=== PATIENT | female | born 1970 | race Caucasian/White ===

== ENCOUNTER 2022-07-19 20:22 | Observation (INO) | payer MEDICARE, OTHER ==
[2022-07-19] MEDS ORDERED: ONDANSETRON 4 MG/2 ML VIAL IVP STA (20:41)
[2022-07-19] MEDS ORDERED: SODIUM CHLORIDE 0.9% 500 ML 500 ML IV STA (20:41)
[2022-07-19] MEDS ORDERED: SODIUM CHLORIDE 0.9% 1,000 ML IV STA (20:41)
[2022-07-19] MEDS ORDERED: KETOROLAC 15 MG/ML 1 ML VIAL IVP STA (20:41)
[2022-07-19] MEDS ORDERED: HYDROmorphone 0.5 MG/0.5 ML SYRINGE IVP STA ×2 (20:42→22:06)
[2022-07-19 21:22] LABS: Basophils # (A) 0.1 k/uL (0-0.2); Basophils % (A) 0 %; Eosinophils # (A) 0.2 k/uL (0-0.7); Eosinophils % (A) 1 %; HCT 37.2 % (34.0-46.0); HGB 12.5 gm/dL (11.4-16.0); Lymphocytes # (A) 1.1 k/uL (1.0-4.8); Lymphocytes % (A) 6 %; MCH 29.8 pg (25.0-35.0); MCHC 33.7 g/dL (31.0-37.0); MCV 88.5 fL (80.0-100.0); Mean Platelet Volume 8.1; Monocytes # (A) 0.9 k/uL (0-1.0); Monocytes % (A) 5 %; Neutrophils # (A) 14.5 k/uL (1.3-7.7); Neutrophils % (A) 86 %; Platelet Count 323 k/uL (150-450); RBC 4.21 m/uL (3.80-5.40); RDW 12.4 % (11.5-15.5); WBC 16.8 k/uL (3.8-10.6)
[2022-07-19 21:29] LABS: Albumin 3.8 g/dL (3.5-5.0); Calcium 9.2 mg/dL (8.4-10.2); Potassium 4.7 mmol/L (3.5-5.1); Total Bilirubin 0.6 mg/dL (0.2-1.3); Total Protein 6.9 g/dL (6.3-8.2)
--- NOTE | 2022-07-19 21:40 | CT ---
EXAMINATION TYPE: CT abdomen pelvis wo con CT DLP: 272.4 mGycm, Automated exposure control for dose reduction was used. DATE OF EXAM: 07/19/2022 9:28 PM COMPARISON: None CLINICAL INDICATION:Female, 51 years old with history of abdominal pain; left sided flank pain TECHNIQUE: Axial CT of the abdomen and pelvis. Sagittal and coronal reformats were created on a [employer] workstation. Contrast used: None Oral contrast used: without Oral Contrast FINDINGS: LOWER CHEST: Left lower lobe calcified granuloma calcified granuloma The esophagus in the lower mediastinum. ABDOMEN LIVER: Unremarkable GALLBLADDER AND BILE DUCTS: The gallbladder surgically absent. PANCREAS: Unremarkable. SPLEEN: Unremarkable. ADRENAL GLANDS: Unremarkable. KIDNEYS AND URETERS: Staghorn calculus within the left renal pelvis extending into the lower calyces. There is associated mild to moderate dilation of the renal pelvis and calyces secondary to the large staghorn calculus in the renal pelvis. Right kidney demonstrates no evidence for calculus or hydronephrosis. PELVIS BLADDER: Unremarkable REPRODUCTIVE: Unremarkable. ABDOMEN & PELVIS STOMACH AND BOWEL: No evidence of bowel obstruction. PERITONEUM/RETROPERITONEUM: No evidence of pneumoperitoneum or free fluid. . VASCULATURE: No evidence of aortic aneurysm. MUSCULOSKELETAL: No acute osseous abnormalities, levoscoliosis apex L2. LYMPH NODES: No gross evidence for lymphadenopathy. SOFT TISSUE/ABDOMINAL WALL: Unremarkable IMPRESSION: Left staghorn calculus with mild to moderate left hydronephrosis predominately of the calyces. Urolog ic consultation recommended
--- NOTE | 2022-07-19 22:07 | ED ---
Abdominal Pain HPI - General Chief Complaint: Abdominal Pain Stated Complaint: Poss kidney stones Time Seen by Provider: 07/19/22 20:31 Source: patient, RN notes reviewed Mode of arrival: ambulatory Limitations: no limitations - History of Present Illness Initial Comments: 51-year-old female presents emergency department chief complaint left flank pain. Patient states started approximately 10 days ago has severely worsened states that she cannot keep anything down. Patient states symptoms are worsening daily and is are unremarkable this. Patient denies any change in bowel habits states that she's had some change in color or urine. Patient state s pain rates her back always down into her groin. No fevers or chills no chest pain. - Related Data Allergies Allergy/AdvReac Type Severity Reaction Status Date / Time Penicillins Allergy Vomiting Verified 07/19/22 20:26 Review of Systems ROS Statement: Those systems with pertinent positive or pertinent negative responses have been documented in the HPI. ROS Other: All systems not noted in ROS Statement are negative. Past Medical History Past Medical History: No Reported History Past Surgical History: No Surgical Hx Reported Past Psychological History: No Psychological Hx Reported Smoking Status: Current every day smoker Past Alcohol Use History: None Reported Past Drug Use History: None Reported General Exam Limitations: no limitations General appearance: alert, in no apparent distress Head exam: Present: atraumatic, normocephalic, normal inspection Eye exam: Present: normal appearance, PERRL, EOMI. Absent: scleral icterus, conjunctival injection, periorbital swelling ENT exam: Present: normal exam, normal oropharynx, mucous membranes moist Neck exam: Present: normal inspection, full ROM. Absent: tenderness, meningismus, lymphadenopathy Respiratory exam: Present: normal lung sounds bilaterally. Absent: respiratory distress, wheezes, rales, rhonchi, stridor Cardiovascular Exam: Present: regular rate, normal rhythm, normal heart sounds. Absent: systolic murmur, diastolic murmur, rubs, gallop, clicks GI/Abdominal exam: Present: soft, tenderness, normal bowel sounds. Absent: distended, guarding, rebound, rigid Back exam: Present: CVA tenderness (L) Neurological exam: Present: alert Skin exam: Present: warm, dry, intact, normal color. Absent: rash Course Vital Signs 07/19/22 20:23 Temperature 97.4 F L Pulse Rate 100 Respiratory 20 Rate Blood Pressure 129/84 O2 Sat by Pulse 98 Oximetry Medical Decision Making - Medical Decision Making Was pt. sent in by a medical professional or institution (, [employer], [employer]ATING [employer] SUPERVISOR, urgent care, hospital, or senior care...) When possible be specific @ -[No] Did you speak to anyone other than the patient for history (EMS, parent, family, police, friend...)? What history was obtained from this source @ -[No] Did you review nursing and triage notes (agree or disagree)? Why? @ -[I reviewed and agree with nursing and triage notes] Were old charts reviewed (outside hosp., previous admission, EMS record, old EKG, old radiological studies, urgent care reports/EKG's, senior care records)? Report findings @ -[No old charts were reviewed] Differential Diagnosis (chest pain, altered mental status, abdominal pain women, abdominal pain men, vaginal bleeding, weakness, fever, dyspnea, syncope, headache, dizziness, GI bleed, back pain, seizure, CVA, palpatations, mental health)? @ -[Pyelonephritis UTI, kidney stone, colitis, this list is not all inclusive.] EKG interpreted by me (3pts min.). @ -[None] X-rays interpreted by me (1pt min.). @ -[None done] CT interpreted by me (1pt min.). @ -[CT shows large staghorn telecast left kidney with hydronephrosis] U/S interpreted by me (1pt. min.). @ -[None done] What testing was considered but not performed or refused? (CT, X-rays, U/S, labs)? Why? @ -[None] What meds were considered but not given or refused? Why? @ -[None] Did you discuss the management of the patient with other professionals (professionals i.e. , NAYEL[employer], DECORATING AND ASSEMBLY SUPERVISOR, lab, RT, psych nurse, psychosocial rehabilitation counselor, reflexologist, teacher, residential care officer, renal case manager)? Give summary @ -[Neurology Dr. Harrison] Was smoking cessation discussed for >3mins.? @ -[No] Was critical care preformed (if so, how long)? @ -[No] Were there social determinants of health that impacted care today? How? (Homelessness, low income, unemployed, alcoholism, drug addiction, transportation, low edu. Level, literacy, decrease access to med. care, retirement, rehab)? @ -[No] Was there de-escalation of care discussed even if they declined (Discuss DNR or withdrawal of care, Hospice)? DNR status @ -[No] What co-morbidities impacted this encounter? (DM, HTN, Smoking, COPD, CAD, Cancer, CVA, ARF, Chemo, Hep., AIDS, mental health diagnosis, sleep apnea, morbid obesity)? @ -[None] Was patient admitted / discharged? Hospital course, mention meds given and route, prescriptions, significant lab abnormalities, going to OR and other pertinent info. @ -[Admitted patient has evidence of large staghorn calculus with hydronephrosis, UTI moderate leukocytosis and subjective fever concerns for possible septic stone, pyelonephritis.] Undiagnosed new problem with uncertain prognosis? @ -[No] Drug Therapy requiring intensive monitoring for toxicity (Heparin, Nitro, Insulin, Cardizem)? @ -[No] Were any procedures done? @ -[No] Diagnosis/symptom? @ -[Septic kidney stone] Acute, or Chronic, or Acute on Chronic? @ -[Acute] Uncomplicated (without systemic symptoms) or Complicated (systemic symptoms)? @ -[Complicated] Side effects of treatment? @ -[No] Exacerbation, Progression, or Severe Exacerbation? @ -[No] Poses a threat to life or bodily function? How? (Chest pain, [place], [place], pneumonia, PE, COPD, DKA, ARF, appy, cholecystitis, CVA, Diverticulitis, Homicidal, Suicidal, threat to staff... and all critical care pts) @ -[Yes patient has complicated kidney infection with kidney stone] - Lab Data Result diagrams: 07/19/22 21:06 07/19/22 21:06 Lab Results 07/19/22 07/19/22 07/19/22 Range/Units 21:06 21:06 21:06 WBC 16.8 H (3.8-10.6) k/uL RBC 4.21 (3.80-5.40) m/uL Hgb 12.5 (11.4-16.0) gm/dL Hct 37.2 (34.0-46.0) % MCV 88.5 (80.0-100.0) fL MCH 29.8 (25.0-35.0) pg MCHC 33.7 (31.0-37.0) g/dL RDW 12.4 (11.5-15.5) % Plt Count 323 (150-450) k/uL MPV 8.1 Neutrophils % 86 % Lymphocytes % 6 % Monocytes % 5 % Eosinophils % 1 % Basophils % 0 % Neutrophils # 14.5 H (1.3-7.7) k/uL Lymphocytes # 1.1 (1.0-4.8) k/uL Monocytes # 0.9 (0-1.0) k/uL Eosinophils # 0.2 (0-0.7) k/uL Basophils # 0.1 (0-0.2) k/uL Sodium 137 (137-145) mmol/L Potassium 4.7 (3.5-5.1) mmol/L Chloride 102 (98-107) mmol/L Carbon Dioxide 24 (22-30) mmol/L Anion Gap 11 mmol/L BUN 27 H (7-17) mg/dL Creatinine 0.98 (0.52-1.04) mg/dL Est GFR (CKD-EPI)AfAm 77 (>60 ml/min/1.73 sqM) Est GFR (CKD-EPI)NonAf 67 (>60 ml/min/1.73 sqM) Glucose 109 H (74-99) mg/dL Plasma Lactic Acid Chava 0.9 (0.7-2.0) mmol/L Calcium 9.2 (8.4-10.2) mg/dL Total Bilirubin 0.6 (0.2-1.3) mg/dL AST 17 (14-36) U/L ALT 17 (4-34) U/L Alkaline Phosphatase 134 H (38-126) U/L Total Protein 6.9 (6.3-8.2) g/dL Albumin 3.8 (3.5-5.0) g/dL Lipase 84 (23-300) U/L Urine Color Urine Appearance (Clear) Urine pH (5.0-8.0) Ur Specific Alva (1.001-1.035) Urine Protein (Negative) Urine Glucose (UA) (Negative) Urine Ketones (Negative) Urine Blood (Negative) Urine Nitrite (Negative) Urine Bilirubin (Negative) Urine Urobilinogen (<2.0) mg/dL Ur Leukocyte Esterase (Negative) Urine RBC (0-5) /hpf Urine WBC (0-5) /hpf Urine WBC Clumps (None) /hpf Ur Squamous Epith Cells (0-4) /hpf Urine Bacteria (None) /hpf Urine Mucus (None) /hpf 07/19/22 Range/Units 22:13 WBC (3.8-10.6) k/uL RBC (3.80-5.40) m/uL Hgb (11.4-16.0) gm/dL Hct (34.0-46.0) % MCV (80.0-100.0) fL MCH (25.0-35.0) pg MCHC (31.0-37.0) g/dL RDW (11.5-15.5) % Plt Count (150-450) k/uL MPV Neutrophils % % Lymphocytes % % Monocytes % % Eosinophils % % Basophils % % Neutrophils # (1.3-7.7) k/uL Lymphocytes # (1.0-4.8) k/uL Monocytes # (0-1.0) k/uL Eosinophils # (0-0.7) k/uL Basophils # (0-0.2) k/uL Sodium (137-145) mmol/L Potassium (3.5-5.1) mmol/L Chloride (98-107) mmol/L Carbon Dioxide (22-30) mmol/L Anion Gap mmol/L BUN (7-17) mg/dL Creatinine (0.52-1.04) mg/dL Est GFR (CKD-EPI)AfAm (>60 ml/min/1.73 sqM) Est GFR (CKD-EPI)NonAf (>60 ml/min/1.73 sqM) Glucose (74-99) mg/dL Plasma Lactic Acid Chava (0.7-2.0) mmol/L Calcium (8.4-10.2) mg/dL Total Bilirubin (0.2-1.3) mg/dL AST (14-36) U/L ALT (4-34) U/L Alkaline Phosphatase (38-126) U/L Total Protein (6.3-8.2) g/dL Albumin (3.5-5.0) g/dL Lipase (23-300) U/L Urine Color Yellow Urine Appearance Turbid H (Clear) Urine pH 7.5 (5.0-8.0) Ur Specific Alva 1.022 (1.001-1.035) Urine Protein 3+ H (Negative) Urine Glucose (UA) Negative (Negative) Urine Ketones 2+ H (Negative) Urine Blood Large H (Negative) Urine Nitrite Positive H (Negative) Urine Bilirubin Negative (Negative) Urine Urobilinogen <2.0 (<2.0) mg/dL Ur Leukocyte Esterase Large H (Negative) Urine RBC >182 H (0-5) /hpf Urine WBC >182 H (0-5) /hpf Urine WBC Clumps Many H (None) /hpf Ur Squamous Epith Cells 17 H (0-4) /hpf Urine Bacteria Many H (None) /hpf Urine Mucus Few H (None) /hpf Disposition Clinical Impression: UTI (urinary tract infection), Staghorn renal calculus, Leukocytosis Disposition: ADMITTED IP TO THIS HOSP Condition: Fair Referrals: None,Stated [Primary Care Provider] - 1-2 days Time of Disposition: 23:08
[2022-07-19 22:45] LABS: Appearance,Urine Turbid (Clear); Bacteria,Urine Many /hpf; Bilirubin,Urine Negative (Negative); Blood,Urine Large (Negative); Color,Urine Yellow; Glucose,Urine (UA) Negative (Negative); Ketones,Urine 2+ (Negative); Leukocyte Esterase,Urine Large (Negative); Mucus,Urine Few /hpf; Nitrite,Urine Positive (Negative); PH, Urine 7.5 (5.0-8.0); Protein,Urine 3+ (Negative); RBC,Urine >182 /hpf (0-5); Specific Gravity,Urine 1.022 (1.001-1.035); Squamous Epithelial Cell,Urine 17 /hpf (0-4); Urobilinogen,Urine <2.0 mg/dL (<2.0); WBC,Urine >182 /hpf (0-5)
[2022-07-19 23:26] VITALS: RESP 16
[2022-07-19] MEDS ORDERED: HYDROmorphone 0.5 MG/0.5 ML SYRINGE IVP PRN (23:28)
[2022-07-19] MEDS ORDERED: NALOXONE 0.4 MG/ML 1 ML VIAL IV PRN (23:28)
[2022-07-19] MEDS ORDERED: ONDANSETRON 4 MG/2 ML VIAL IVP PRN (23:28)
[2022-07-19] MEDS: KETOROLAC 15 MG/ML 1 ML VIAL IVP PRN (23:36)
[2022-07-19] MEDS: SODIUM CHLORIDE 0.9% 1,000 ML IV SCH (23:36)
[2022-07-20 10:23] VITALS: BP 135/74; PULSE 111; TEMP 98
--- NOTE | 2022-07-20 11:05 | P.DS ---
Providers Date of admission: 07/19/22 23:08 Expected date of discharge: 07/20/22 Attending physician: Ignacio Harrison MD Primary care physician: Stated None - Discharge Diagnosis(es) (1) Staghorn renal calculus Status: Acute (2) UTI (urinary tract infection) Status: Acute Hospital Course: The patient is a 51-year-old female with no reported past medical history. She is a current smoker. She presented to the emergency department on 07/19/22 with complaints of left flank pain that radiates to her left groin. Her pain started approximately 10 days ago and progressively got worse with associated nausea and vomiting. She denies any fever but has had some chills. Her urinalysis is consistent with a UTI. WBC 16.8. Urine culture and blood cultures are pending. Abdomen/pelvis CT shows left staghorn calculus with mild to moderate left hydronephrosis predominantly of the calyces. The patient is afebrile, creatinine is 0.98. She reports her pain is being well controlled. No previous history of kidney stones. She denies any dysuria or hematuria. She does report a history of recurrent UTIs. The patient is discharged home on Keflex 500 mg 3 times a day for 2 weeks to clear her current UTI. She will be scheduled by our office for an outpatient percutaneous nephrolithotomy. The patient is in agreement with this plan. Prescriptions were sent to her pharmacy for Keflex, Zofran, and Toradol. Impression and plan of care have been directed as dictated by the signing physician. Chelsea Huerta nurse practitioner acting as scribe for signing physician. Chelsea Huerta [facility] Palliative Care/Urology Spectralink [id number] Email: [email or web address] I personally performed and participated in the history, physical, the decision making, I agree with the assessment and plan of GALLEY WORKER Patient Condition at Discharge: Good Plan - Discharge Summary New Discharge Prescriptions: New Ondansetron [Zofran] 4 mg PO Q8HR PRN #10 tab PRN Reason: Nausea Ketorolac [Toradol] 10 mg PO Q6HR PRN #15 tab PRN Reason: Pain Cephalexin [Keflex] 500 mg PO Q8HR 14 Days #42 cap Discontinued Ondansetron [Zofran] 4 mg PO Q8H PRN PRN Reason: Nausea And Vomiting Naproxen [Naprosyn] 500 mg PO Q12H PRN PRN Reason: Pain Discharge Medication List Cephalexin [Keflex] 500 mg PO Q8HR 14 Days #42 cap 07/20/22 [Rx] Ketorolac [Toradol] 10 mg PO Q6HR PRN #15 tab 07/20/22 [Rx] Ondansetron [Zofran] 4 mg PO Q8HR PRN #10 tab 07/20/22 [Rx] Follow up Appointment(s)/Referral(s): None,Stated [Primary Care Provider] - 1-2 days Patient Instructions/Handouts: Kidney Stones (DC), Urinary Tract Infection in Women (DC) Activity/Diet/Wound Care/Special Instructions: - Dr. Harrison's office will contact you to schedule your surgery - Take medication prescribed for pain as needed - Do not take Toradol and Naprosyn at the same time - Take antibiotic, Keflex, 3 times a day for 2 weeks - Activity as tolerated Discharge Disposition: HOME SELF-CARE
[2022-07-20] MEDS: SODIUM CHLORIDE 0.9% 1,000 ML IV SCH (12:08)
[2022-07-20] MEDS: KETOROLAC 15 MG/ML 1 ML VIAL IVP PRN (12:09)
[2022-07-20 12:13] VITALS: BMI 18.3
--- NOTE | 2022-07-20 18:05 | P.GSHP ---
History of Present Illness H&P Date: 07/20/22 Chief Complaint: Left renal stone The patient is a 51-year-old female with no reported past medical history. She is a current smoker. She presented to the emergency department on 07/19/22 with complaints of left flank pain that radiates to her left groin. Her pain started approximately 10 days ago and progressively got worse with associated nausea and vomiting. She denies any fever but has had some chills. Her urinalysis is consistent with a UTI. WBC 16.8. Urine culture and blood cultures are pending. Abdomen/pelvis CT shows left staghorn calculus with mild to moderate left hydronephrosis predominantly of the calyces. The patient is afebrile, creatinine is 0.98. She reports her pain is being well controlled this am. No previous history of kidney stones. She denies any dysuria or hematuria. She does report a history of recurrent UTIs. Past Medical History Past Medical History: No Reported History Past Surgical History: No Surgical Hx Reported Past Psychological History: No Psychological Hx Reported Smoking Status: Current every day smoker Past Alcohol Use History: None Reported Past Drug Use History: None Reported Medications and Allergies Home Medications Medication Instructions Recorded Confirmed Type Cephalexin [Keflex] 500 mg PO Q8HR 14 Days #42 cap 07/20/22 Rx Ketorolac [Toradol] 10 mg PO Q6HR PRN #15 tab 07/20/22 Rx Ondansetron [Zofran] 4 mg PO Q8HR PRN #10 tab 07/20/22 Rx Allergies Allergy/AdvReac Type Severity Reaction Status Date / Time Penicillins AdvReac Vomiting Verified 07/20/22 07:30 Surgical - Exam Vital Signs Temp Pulse Resp BP Pulse Ox 97.4 F L 100 20 129/84 98 07/19/22 20:23 07/19/22 20:23 07/19/22 20:23 07/19/22 20:23 07/19/22 20:23 - General no distress, no pain - Eyes normal ocular movement, no pale - ENT normal nares, normal mucosa - Respiratory normal expansion, normal respiratory effort - Abdomen Abdomen: soft, tender (Left CVA tenderness), no distended - Psychiatric oriented to time, oriented to person, oriented to place Results - Labs 07/19/22 21:06 07/19/22 21:06 Abnormal Lab Results - Last 24 Hours (Table) 07/19/22 07/19/22 07/19/22 Range/Units 21:06 21:06 22:13 WBC 16.8 H (3.8-10.6) k/uL Neutrophils # 14.5 H (1.3-7.7) k/uL BUN 27 H (7-17) mg/dL Glucose 109 H (74-99) mg/dL Alkaline Phosphatase 134 H (38-126) U/L Urine Appearance Turbid H (Clear) Urine Protein 3+ H (Negative) Urine Ketones 2+ H (Negative) Urine Blood Large H (Negative) Urine Nitrite Positive H (Negative) Ur Leukocyte Esterase Large H (Negative) Urine RBC >182 H (0-5) /hpf Urine WBC >182 H (0-5) /hpf Urine WBC Clumps Many H (None) /hpf Ur Squamous Epith Cells 17 H (0-4) /hpf Urine Bacteria Many H (None) /hpf Urine Mucus Few H (None) /hpf Microbiology - Last 24 Hours (Table) 07/19/22 23:45 Blood Culture - Final Blood 07/19/22 22:13 Urine Culture - Preliminary Urine,Voided Diabetes panel 07/19/22 Range/Units 21:06 Sodium 137 (137-145) mmol/L Potassium 4.7 (3.5-5.1) mmol/L Chloride 102 (98-107) mmol/L Carbon Dioxide 24 (22-30) mmol/L BUN 27 H (7-17) mg/dL Creatinine 0.98 (0.52-1.04) mg/dL Glucose 109 H (74-99) mg/dL Calcium 9.2 (8.4-10.2) mg/dL AST 17 (14-36) U/L ALT 17 (4-34) U/L Alkaline Phosphatase 134 H (38-126) U/L Total Protein 6.9 (6.3-8.2) g/dL Albumin 3.8 (3.5-5.0) g/dL Calcium panel 07/19/22 Range/Units 21:06 Calcium 9.2 (8.4-10.2) mg/dL Albumin 3.8 (3.5-5.0) g/dL Pituitary panel 07/19/22 Range/Units 21:06 Sodium 137 (137-145) mmol/L Potassium 4.7 (3.5-5.1) mmol/L Chloride 102 (98-107) mmol/L Carbon Dioxide 24 (22-30) mmol/L BUN 27 H (7-17) mg/dL Creatinine 0.98 (0.52-1.04) mg/dL Glucose 109 H (74-99) mg/dL Calcium 9.2 (8.4-10.2) mg/dL Adrenal panel 07/19/22 Range/Units 21:06 Sodium 137 (137-145) mmol/L Potassium 4.7 (3.5-5.1) mmol/L Chloride 102 (98-107) mmol/L Carbon Dioxide 24 (22-30) mmol/L BUN 27 H (7-17) mg/dL Creatinine 0.98 (0.52-1.04) mg/dL Glucose 109 H (74-99) mg/dL Calcium 9.2 (8.4-10.2) mg/dL Total Bilirubin 0.6 (0.2-1.3) mg/dL AST 17 (14-36) U/L ALT 17 (4-34) U/L Alkaline Phosphatase 134 H (38-126) U/L Total Protein 6.9 (6.3-8.2) g/dL Albumin 3.8 (3.5-5.0) g/dL - Imaging CT scan - abdomen: image reviewed (Large left-sided staghorn) Assessment and Plan Assessment: This 51-year-old female with a large left-sided staghorn calculi, causing recurrent UTIs, hydronephrosis and pain. Discussed with her the next step would be to treat her UTI, discussed that most likely the source of recurrent UTIs is her staghorn calculi. Discussed after resolution of the UTIs she will be set up for a left-sided PCNL. Aware of the risk of surgery which includes bleeding, infection, injury to nearby organs which includes spleen, lung and bowel. -Okay for discharge home today- -follow up on urine culture, will discharge home on 2 weeks of antibiotics -We'll arrange for outpatient left-sided PCNL (1) Staghorn renal calculus Status: Acute Code(s): N20.0 - CALCULUS OF KIDNEY SNOMED Code(s): 055284550 (2) UTI (urinary tract infection) Status: Acute Code(s): N39.0 - URINARY TRACT INFECTION, SITE NOT SPECIFIED SNOMED Code(s): 65489879
== END 2022-07-20 12:30 | disposition home or self-care (01) ==
LOC: EC 20:22 → 6NMEDSUR 23:08
PROVIDERS: ADMIT Urology; ATTEND Urology
DX: N13.6 Pyonephrosis (principal); F17.200 Nicotine dependence, unspecified, uncomplicated; Z88.0 Allergy status to penicillin; Z87.440 Personal history of urinary (tract) infections
CPT/HCPCS: 96376 ×2; 96361 ×3; 96365; 96375 ×2; 99285; 36415; 80053; 83605; 83690; 85025; 81001; 87040; 87086; 87077 ×2; 87186 ×2; 74176; G0378 ×2; J2405; J0696; J1885 ×2; J1170; J1790

== ENCOUNTER 2022-09-06 06:09 | Day surgery (SDC) | payer SELFPAY ==
--- NOTE | 2022-09-01 14:26 | P.HPIHPCON ---
History of Present Illness H&P Date: 09/01/22 Chief Complaint: Left-sided staghorn calculi This is a 51-year-old female with history of recurrent UTIs, underwent a CT abdomen and pelvis that showed evidence of left-sided staghorn calculi, causing hydronephrosis. Discussed with her given the finding I do recommend proceeding with left-sided PCNL. An alternative of surgery was discussed in detail. Discussed risk which includes but not limited to bleeding, infection, injury to nearby organs which includes but not limited to the spleen, bowel, lung. Risk of anesthesia was also discussed with her in detail. Discussed given the significant stone burden is a potential that this might need to be a staged PCNL. She understood all the risk and agreed to proceed Consent for Procedure: I have explained the operation/procedure to the patient, including the risks, benefits, side effects, alternative therapies (including not receiving the proposed treatment or service), the likelihood of the patient achieving his/her goals, and potential recuperation problems for the procedure/sedation/analgesia, as well as any blood products, if indicated. I also explained to the patient the risks, benefits and side effects of the alternatives, as well as the risks related to not receiving the proposed procedure, care, treatment, or services. Past Medical History Past Medical History: No Reported History Additional Past Medical History / Comment(s): kidney stones left side, admitted for UTI/kidney stones History of Any Multi-Drug Resistant Organisms: None Reported Past Surgical History: Cholecystectomy Additional Past Surgical History / Comment(s): rt ureter stent placed 1992-later removed Past Anesthesia/Blood Transfusion Reactions: No Reported Reaction Additional Past Anesthesia/Blood Transfusion Reaction / Comment(s): no hx blood transfusion Smoking Status: Current every day smoker - Past Family History Mother Family Medical History: No Reported History Father Family Medical History: Cancer Additional Family Medical History / Comment(s): prostate CA. paternal grandmother-breast CA Medications and Allergies Home Medications Medication Instructions Recorded Confirmed Type Acetaminophen Tab [Tylenol Tab] 1,000 mg PO Q6HR PRN 09/01/22 09/01/22 History Allergies Allergy/AdvReac Type Severity Reaction Status Date / Time Penicillins AdvReac Vomiting Verified 09/01/22 08:37 Surgical - Exam - General no distress, no pain - Eyes normal ocular movement, no pale - ENT normal nares, normal mucosa - Respiratory normal expansion, normal respiratory effort - Abdomen Abdomen: soft, non tender Assessment and Plan Assessment: OR for left-sided PCNL
[~2022-09-06 06:09] MED LIST: DEXAMETHASONE SOD PHOSPHATE 4 MG/ML 1 ML VIAL IV ONE; GENTAMICIN 120 MG in SODIUM CHLORIDE 0.9% 100 ML IVPB PRN; HYDROmorphone 0.5 MG/0.5 ML SYRINGE IVP PRN; LACTATED RINGERS 1,000 ML IV SCH; LIDOCAINE 1% (10MG/ML) FOR IV START INTRADERMA PRN; ONDANSETRON 4 MG/2 ML VIAL IVP ONE; SCOPOLAMINE 1 MG/72 HR PATCH TRANSDERM ONE
--- NOTE | 2022-09-06 06:30 | XR ---
EXAMINATION TYPE: XR KUB DATE OF EXAM: 09/06/2022 COMPARISON: NONE HISTORY: Preop kidney stone TECHNIQUE: Single view FINDINGS: There is amorphous large area of calcification over the left kidney. This measures 6 x 1 cm . The bowel gas pattern is nonacute. There are clips from cholecystectomy. IMPRESSION: Large left renal calculus.
[2022-09-06 06:59] VITALS: RESP 16
[2022-09-06] MEDS ORDERED: ONDANSETRON 4 MG/2 ML VIAL IVP PRN (08:02)
[2022-09-06] MEDS ORDERED: ACETAMINOPHEN TAB 325 MG TAB PO PRN (08:02)
[2022-09-06] MEDS ORDERED: MAG HYDROX/AL HYDROX/SIMETH 30 ML CUP PO PRN (08:02)
[2022-09-06] MEDS ORDERED: GLYCOPYRROLATE 0.2 MG/ML 2 ML VIAL ONE (08:09)
[2022-09-06] MEDS ORDERED: SUCCINYLCHOLINE CHLORIDE 200 MG/10 ML VIAL IV ONE (08:09)
[2022-09-06] MEDS ORDERED: ROCURONIUM 10 MG/ML (5 ML VIAL) IV ONE (08:09)
[2022-09-06] MEDS ORDERED: LIDOCAINE 2% INJ 20 MG/ML (2 ML VIAL) ONE (08:09)
[2022-09-06] MEDS ORDERED: fentaNYL (PF) 50 MCG/ML 2 ML AMP ONE (08:09)
[2022-09-06] MEDS ORDERED: PROPOFOL 10 MG/ML 20 ML VIAL IV ONE (08:09)
[2022-09-06] MEDS ORDERED: HYDROmorphone (PF) 1 MG/ML ONE (08:09)
[2022-09-06] MEDS ORDERED: MIDAZOLAM 2 MG/2 ML VIAL ONE (08:09)
[2022-09-06] MEDS ORDERED: NEOSTIGMINE 1 MG/ML 10 ML VIAL ONE (08:09)
[2022-09-06] MEDS ORDERED: IOPAMIDOL-370 50ML BTL MISCELLANE ONE ×2 (09:02)
--- NOTE | 2022-09-06 10:42 | P.OP ---
Date of Procedure: 09/06/22 Preoperative Diagnosis: Left-sided renal stone Postoperative Diagnosis: Same Procedure(s) Performed: Left-sided percutaneous nephrolithotomy, cystoscopy, left ureteral catheterization Implants: None Anesthesia: CARLA Surgeon: Ignacoi Harrison Estimated Blood Loss (ml): 100 Pathology: other (left renal stone) Condition: stable Disposition: PACU Indications for Procedure: This is a 51-year-old female with history of recurrent UTIs, underwent a CT abdomen and pelvis that showed evidence of left-sided staghorn calculi, causing hydronephrosis. Discussed with her given the finding I do recommend proceeding with left-sided PCNL. An alternative of surgery was discussed in detail. Discussed risk which includes but not limited to bleeding, infection, injury to nearby organs which includes but not limited to the spleen, bowel, lung. Risk of anesthesia was also discussed with her in detail. Discussed given the significant stone burden is a potential that this might need to be a staged PCNL. She understood all the risk and agreed to proceed Operative Findings: large left sided renal pelvis renal stone and multiple left lower pole renal stone Description of Procedure: Patient brought to the operating room, general anesthesia was induced. She was prepped and draped in the bed for leg position. Cystoscopy fitted 21-Palestinian sheath was inserted per urethra, cystoscopy was performed which showed no abnormality within the bladder. The left ureter was intubated, and the left ureteral occlusion catheter was advanced up the left ureter and into the renal pelvis. Next a Ríos catheter was placed, and the ureteral catheter was secured to the Ríos catheter. Patient was placed in a prone position, all pressure points were padded. Next the flank was prepped, next access was obtained by Dr keating, it was an upper pole access below the 12th rib. After 2 wires were down the ureter, next a ureteral balloon dilator was passed over the wire under fluoroscopy the tract was dilated under fluoroscopy. Next a 30-Palestinian access sheath was passed over the balloon dilator. Next the nephroscope was inserted through the access sheath, a large friable stone was seen in the renal pelvis fragmented using the ultrasound lithotripter, the fragments were removed using the grasper. There was an additional stone in the lower pole which was fragmented using the ultrasound lithotripter, the stone was removed using the grasper. Repeat renoscopy showed no additional stones, on fluoroscopy there was a small stone in the lower pole. At this time I switched to a flexible cystoscope and I was able to visualize the stone, using the stone basket stone was grasped and removed intact. Repeat renoscopy showed no stone, on fluoroscopy and was no other radiopaque densities. At this time a 12-Palestinian nephrostomy tube was passed over the wire, antegrade nephrostogram was performed which showed no filling defect, or evidence of extravasation. There was contrast seen going down the ureter. At this time the subcutaneous tissue was closed using 3-0 Vicryl. Skin was closed using 3-0 Vicryl along the medial edge 2-0 silk on the lateral edge, the tube was secured to the silk stitches. Sterile dressing was applied. patient was awakened from anesthesia. Patient was taken to recovery in stable condition
[2022-09-06] MEDS ORDERED: LACTATED RINGERS 1,000 ML IV ONE (11:27)
--- NOTE | 2022-09-06 12:03 | FL ---
EXAMINATION TYPE: FL Perc Nephrostomy New Access DATE OF EXAM: 09/06/2022 COMPARISON: NONE HISTORY: Left renal stone Procedure had been discussed with the patient by Dr. Casas, risks, benefits, alternatives, were dis cussed and any questions were answered. Informed consent was obtained. The patient was in a semipro ne position prepped and draped on the OR table in the usual sterile fashion. Utilizing a 15 cm lengt h Chiba needle a single pass was made into a lower pole posterior calyx under fluoroscopic guidance. An 0.018 guidewire is passed through the needle and there was placement of a 6-Welsh catheter sheat h system. There was conversion to a 0.035 system was performed with passage of a guidewire into the ureter utilizing a directional catheter. A second safety wire was placed. Remaining portion of pro cedure performed by . Approximately 1 minute and 41 seconds of fluoroscopy was provided. dap .[id number] IMPRESSION: 1. Successful intraoperative left nephrostomy prior to nephrolithotomy.
[2022-09-06] MEDS: KETOROLAC 15 MG/ML 1 ML VIAL IVP SCH ×2 (12:36→17:52)
[2022-09-06] MEDS: DEXTROSE 5%-0.45% NACL 1,000 ML IV SCH ×2 (13:16→20:35)
[2022-09-06] MEDS: CIPROFLOXACIN HCL 500 MG TAB PO SCH ×2 (13:20→20:31)
[2022-09-06] MEDS: HEPARIN SODIUM,PORCINE/PF 5,000 UNIT/0.5 ML SYRINGE SQ SCH (15:57)
[2022-09-06] MEDS: HYDROmorphone 1 MG/ML 1 ML SYRINGE IVP PRN ×2 (15:57→22:04)
[2022-09-07] MEDS: KETOROLAC 15 MG/ML 1 ML VIAL IVP SCH ×3 (00:44→13:09)
[2022-09-07] MEDS: HEPARIN SODIUM,PORCINE/PF 5,000 UNIT/0.5 ML SYRINGE SQ SCH ×2 (00:45→08:53)
[2022-09-07] MEDS: HYDROmorphone 1 MG/ML 1 ML SYRINGE IVP PRN ×2 (05:32→10:43)
[2022-09-07] MEDS: DEXTROSE 5%-0.45% NACL 1,000 ML IV SCH ×2 (08:45→15:46)
[2022-09-07] MEDS: CIPROFLOXACIN HCL 500 MG TAB PO SCH (08:53)
[2022-09-07 10:50] VITALS: BMI 18.3
[2022-09-07 12:59] VITALS: BP 117/69; PULSE 82; TEMP 99.8
--- NOTE | 2022-09-07 13:59 | P.DS ---
Providers Expected date of discharge: 09/07/22 Attending physician: Ignacio Harrison MD Primary care physician: Stated None - Discharge Diagnosis(es) (1) Staghorn renal calculus Status: Acute Hospital Course: The patient is a 51-year-old female with history of recurrent UTIs and kidney stones. She underwent a CT abdomen/pelvis that showed evidence of left sided staghorn calculi causing hydronephrosis. On 09/06/22 she underwent a left-sided percutaneous nephrolithotomy, cystoscopy, left ureteral catheterization with Dr. Harrison. She tolerated the procedure well and was taken to the recovery room in good condition. POD #1 she denies any nausea or vomiting and is tolerating a regular diet. Her Ríos catheter was draining light red urine. It has been removed and she is able to void without difficulty. Left sided nephrostomy draining light red urine with dressing clean dry and intact. She states that her pain is well controlled. She was instructed to finish the antibiotics that she has at home. She is to follow up in our office in one week with Dr. Harrison. Impression and plan of care have been directed as dictated by the signing physician. Chelsea Huerta nurse practitioner acting as scribe for signing physician. 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 Patient Condition at Discharge: Good Plan - Discharge Summary Discharge Rx Participant: No New Discharge Prescriptions: New Ketorolac [Toradol] 10 mg PO Q6HR PRN #15 tab PRN Reason: Pain Continue Acetaminophen Tab [Tylenol] 1,000 mg PO Q6HR PRN PRN Reason: Pain Discharge Medication List Acetaminophen Tab [Tylenol] 1,000 mg PO Q6HR PRN 09/01/22 [History] Ketorolac [Toradol] 10 mg PO Q6HR PRN #15 tab 09/07/22 [Rx] Follow up Appointment(s)/Referral(s): Ignacio Harrison MD [STAFF PHYSICIAN] - 09/12/22 9:40 am Patient Instructions/Handouts: Ketorolac (By mouth), Surgical Site Infections (DC), Nephrostomy Tube Care (DC) Activity/Diet/Wound Care/Special Instructions: - FINISH THE ANTIBIOTIC THAT YOU HAVE AT HOME - No heavy lifting, straining, or strenuous activity - Take pain medication as prescribed for discomfort - You may shower, no tub baths - It is normal to have blood in your urine - Increase your fluid intake - You may change the dressing around the tube as needed - Follow up with the physician in the office for tube removal Discharge Disposition: HOME SELF-CARE
== END 2022-09-07 15:55 | disposition home or self-care (01) ==
LOC: OR 06:09 → 5NMEDONC 10:20 → OR 09-07 15:55
PROVIDERS: ATTEND Urology
DX: N20.0 Calculus of kidney (principal); F17.200 Nicotine dependence, unspecified, uncomplicated
CPT/HCPCS: 86900; 86901; 86850; 82365; 50432; 74018; 52281; 50080; C1894; C1769 ×3; C1729; J1100; J2405; J1580; J1170 ×2; J1885 ×2; Q9967; J1790; J1644 ×2